=== PATIENT | male | born 1995 | race Caucasian/White ===

== ENCOUNTER → 2019-01-06 08:59 | Outpatient (CLI) | payer OTHER, SELFPAY ==
--- NOTE | 2019-01-06 09:01 | DI.RAD.S_ITS ---
PROCEDURE: XR RIBS RT MIN 3V W CXR 1V INDICATIONS: fall, pain to anterior/axillary line of chest, r/o rib fx TECHNIQUE: 2 views of the right ribs were acquired, along with a single view chest. COMPARISON: [facility], CR, XR SHOULDER RT MIN 2V, 01/06/2019, 9:01. FINDINGS: Surgical changes and devices: None. Bones and chest wall: No fractures or dislocations. No suspicious bony lesions. Overlying soft tissues appear unremarkable. Lungs and pleura: No pleural effusions or pneumothorax. Lungs appear clear. Mediastinum: Mediastinal contours appear normal. Heart size is normal. IMPRESSION: No focal rib abnormality can be seen. No displaced rib fracture. Dictated by: Maxi Gilbert M.D. on 01/06/2019 at 8:22 Approved by: Maxi Gilbert M.D. on 01/06/2019 at 8:23
--- NOTE | 2019-01-06 09:01 | DI.RAD.S_ITS ---
PROCEDURE: XR SHOULDER RT MIN 2V INDICATIONS: fall, pain pec major inserton, r/o AC separation or fx TECHNIQUE: 3 views of the shoulder were acquired. COMPARISON: None. FINDINGS: Bones: No displaced fractures or dislocations are identified. There is slight superior elevation of the distal clavicle with respect to the acromion with borderline widening of the acromioclavicular joint. No significant degenerative changes of the right shoulder joints are present. No suspicious osseous lesions are present. The bone mineralization is within normal limits. Soft tissues: No suspicious soft tissue calcifications. IMPRESSION: 1. Possible low-grade acromioclavicular joint separation injury. The need for confirmation utilizing MRI may be determined clinically. 2. No acute fractures. Dictated by: Jesu Salvador M.D. on 01/06/2019 at 8:36 Approved by: Jesu Salvador M.D. on 01/06/2019 at 8:47
== END ==
PROVIDERS: Visit Provider Physician Assistant
DX: S20.211A Contusion of right front wall of thorax, initial encounter (principal); S29.011A Strain of muscle and tendon of front wall of thorax, initial encounter; W19.XXXA Unspecified fall, initial encounter
CPT/HCPCS: 71101; 73030

== ENCOUNTER → 2022-05-15 06:25 | Outpatient (CLI) | payer OTHER, SELFPAY ==
--- NOTE | 2022-05-15 06:26 | DI.US.S_ITS ---
PROCEDURE: US ABDOMEN LIMITED COMPARISON: None. INDICATIONS: SOFT TISSUE MASS FINDINGS: Real-time ultrasound scanning was performed of the region of interest, with image documentation. Color Doppler imaging was also performed. At the area of clinical concern adjacent to the umbilicus, there is a nonvascular ovoid mass within the subcutaneous fat that measures 1.4 x 1 x 1.3 cm. This lesion is slightly hyperechoic to the surrounding normal fat. 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 This lesion is slightly hyperechoic to the surrounding normal subcutaneous fat. Differential diagnosis includes liposarcoma, although this is considered to be less likely. - If clinically appropriate, please consider ultrasound-guided percutaneous biopsy. Dictated by: Maxi Gilbert M.D. on 05/15/2022 at 18:03 Approved by: Maxi Gilbert M.D. on 05/15/2022 at 18:05
== END ==
PROVIDERS: Referring Provider Family Medicine; Visit Provider Family Medicine
DX: M79.9 Soft tissue disorder, unspecified (principal); R19.05 Periumbilic swelling, mass or lump
CPT/HCPCS: 76700; 76705

== ENCOUNTER → 2023-05-07 14:26 | Outpatient (CLI) | payer SELFPAY ==
--- NOTE | 2023-05-07 | DI.RAD.S_ITS ---
PROCEDURE: XR LUMBAR SPINE 2-3V INDICATIONS: lumbar radiculopathy TECHNIQUE: 3 views of the lumbar spine were acquired. COMPARISON: None. FINDINGS: Bones: 5 [id number] vertebrae are present. There is normal bony alignment. No vertebral body compression fractures. No suspicious bony lesions. No significant degenerative changes. Soft tissues: Overlying bowel gas pattern is normal. No suspicious soft tissue calcifications. IMPRESSION: No acute bony abnormality. Approved by: Joanna Mahmood M.D. on 05/07/2023 at 17:32
== END ==
PROVIDERS: PCP Family Medicine; Referring Provider Registered Nurse; Visit Provider Registered Nurse
DX: M54.16 Radiculopathy, lumbar region (principal)
CPT/HCPCS: 72100

== ENCOUNTER → 2023-07-22 10:25 | Outpatient (CLI) | payer OTHER, SELFPAY ==
[2023-07-22 10:58] LABS: Add Manual Diff / Slide Review NO; Basophils Absolute Auto 0 /uL (0-100); Basophils Percent Auto 0.6 % (0-2); Eosinophils Absolute Auto 100 /uL (0-450); Eosinophils Percent Auto 0.9 % (2-4); Hematocrit 46.1 % (41-53); Hemoglobin 15.7 g/dL (13.5-17.5); Lymphocytes Absolute Auto 2100 /uL (1100-4500); Lymphocytes Percent Auto 27.7 % (25-40); Mean Corpuscular HGB Conc 34.1 % (30-36); Mean Corpuscular Volume 88.1 fL (80-100); Monocytes Absolute Auto 500 /uL (0-900); Monocytes Percent Auto 6.9 % (3-14); Neutrophils Absolute Auto 4800 /uL (1500-7000); Neutrophils Percent Auto 63.9 % (50-75); Platelet Count 231 X10^3/uL (150-400); Red Blood Cell Count 5.23 X10^6/uL (4.5-5.9); White Blood Cell Count 7.6 X10^3/uL (4.5-11.0)
== END ==
LOC: LAB 10:27
PROVIDERS: PCP Family Medicine; Referring Provider Orthopaedic Surgery Orthopaedic Surgery of the Spine; Visit Provider Orthopaedic Surgery Orthopaedic Surgery of the Spine
DX: Z01.812 Encounter for preprocedural laboratory examination (principal)
CPT/HCPCS: 36415; 85025

== ENCOUNTER 2023-08-17 05:56 | Day surgery (SDC) | payer OTHER, SELFPAY ==
[2023-08-11 11:59] VITALS: BMI 31.0
[2023-08-17] VITALS (7 sets, daily range): BP systolic 123–141; BP diastolic 75–81; PULSE 52–69; RESP 12–17; TEMP 36.1–36.5; O2SAT 95–98; BMI 30.4
[2023-08-17] MEDS: ACETAMINOPHEN 325 MG TABLET 975 MG PO (06:49)
[2023-08-17] MEDS: PREGABALIN 75 MG CAPSULE PO (06:49)
[2023-08-17] MEDS: LACTATED RINGERS 1,000 ML 42 ML IV (06:49)
[2023-08-17] MEDS: MIDAZOLAM 2 MG/2 ML VIAL IV (07:43)
--- NOTE | 2023-08-17 07:44 | PM.PREOP ---
Pre-operative Note Interval Note History & Physical reviewed/Exam performed by Physician: Yes Changes to H&P: No
[2023-08-17] MEDS: CEFAZOLIN 2 GM/100 ML PREMIX 100 ML IV (08:00)
--- NOTE | 2023-08-17 08:19 | SUR.OPER ---
Prone on spine table, head in foam head support, padded chest and pelvic supports, gel pad at knees, lower legs supported by pillows; nipples, genitalia and toes free of pressure, arms secured on foam padded arm boards at <90 degrees abduction. Tape over blanket at thigh secured to table.
[2023-08-17] MEDS: BUPIVACAINE 0.25% (PF) 30 ML, EPINEPHrine 0.15 MG INJ (08:28)
--- NOTE | 2023-08-17 08:46 | DI.RAD.S_ITS ---
PROCEDURE: XR LUMBAR SPINE 2-3V INDICATIONS: L5-S1 MICRODISCECTOMY TECHNIQUE: 2 views of the lumbar spine were acquired. COMPARISON: [facility], CR, XR LUMBAR SPINE 2-3V, 05/07/2023, 15:03. FINDINGS: 2 intraoperative fluoroscopic images of the lumbosacral junction were acquired. Adjacent surgical instrumentation. IMPRESSION: Intraoperative fluoroscopic support lumbosacral micro discectomy at L5-S1. Please see separate procedure note for further details. Dictated by: Mykel Baker M.D. on 08/17/2023 at 10:42 Approved by: Mykel Baker M.D. on 08/17/2023 at 10:43
--- NOTE | 2023-08-17 09:01 | P.OP_ITS ---
Operative Date/Time/Diagnoses Date of procedure: 08/17/23 Time of procedure: 07:40 Pre-op diagnosis: 1. L5-S1 disc herniation 2. Lumbar radiculopathy Post-op diagnosis: same Procedure & Clinicians Procedure: 1. L5-S1 left microdiscectomy 2. Utilization of microsurgical technique and operating microscope Same procedure as scheduled: Yes Indications: Patient has been having chronic back pain and worsening lumbar radiculopathy. Patient was found to a L5-S1 left paramedian disc herniation correlating with his symptoms. Patient failed multiple conservative management with worsening pain weakness and numbness in his lower extremity. Patient has been having difficulty performing activity of daily living. After discussing risks benefits of treatment options, patient elected proceed with surgery. Surgeon: Armando Pryor Internet Marketer: Adriana Villafana Click Yes if Unassisted: No Anesthesia Type: General Operative Notes Closure Type: primary Specimen(s): none sent Estimated Blood Loss (mL): 5 Blood products transfused: none Procedure in detail: Patient was seen in the preoperative area. Risks and benefits of the surgery was discussed with the patient. Informed consent was obtained from the patient and placed in the chart. Surgical site was marked. Patient was taken to the op erative room. General anesthesia was administered. Prophylactic antibiotic was given to the patient less than 30 min before the incision was made. Patient was placed into a prone position on the Tahir table. Patient's back was then prepped and draped in the sterile fashion. Time-out was performed at this time. Using AP and lateral C-arm imaging the interval between L5-S1 was identified and marked on patient's back. A 1 inch incision 1 in from midline was made on the left side. The fascia was incised in line with skin incision. Globus MARS retractors was placed inside the incision and docked onto the L5 lamina. Using microsurgical technique and operating microscope, a L5 laminotomy was performed using a Kerrison rongeur. Liagamentum flavum was resected at the site of the laminotomy. The disc space at L5-S1 was identified. Microdiscectomy was performed by incising the annulus with #11 blade. Microcurettes and pituitary was used to removed herniated disc fragments of disc from the epidural space. After the microdiskectomy was completed, the area medial lateral superior and inferior to the area of the microdiskectomy was inspected and explored using a micro curette. No other impinging structure was identified. The wound was then irrigated with sterile normal saline. 40 mg Depo-Medrol was placed into the epidural space. The deep fascia was closed with 1-0 Vicryl. The subcutaneous tissue was closed with 2-0 Vicryl. The skin was closed with skin abel. Patient tolerated the procedure well. There were no complications. Patient was transferred recovery room in stable condition. Complications: none Post-operative Condition: stable Disposition: PACU Plan for aftercare: Discharged home
[2023-08-17] MEDS: OXYCODONE IR 5 MG TABLET PO (09:21)
[2023-08-17] MEDS: ONDANSETRON 4 MG/2 ML INJ IV (09:54)
== END 2023-08-17 10:04 | disposition home or self-care (01) ==
PROVIDERS: PCP Family Medicine; Referring Provider Orthopaedic Surgery Orthopaedic Surgery of the Spine; Visit Provider Orthopaedic Surgery Orthopaedic Surgery of the Spine
PROC: (CPT 63030; principal; 2023-08-17 07:45)
DX: M51.26 Other intervertebral disc displacement, lumbar region (principal); M54.16 Radiculopathy, lumbar region
CPT/HCPCS: 63030; 72100; 76000; J0171; J0690; J1100; J1170; J1885; J2250; J2405; J2704; J2919; J3010